=== PATIENT | male | born 1960 | race Caucasian/White ===

== ENCOUNTER 2017-11-27 07:48 | Day surgery (SDC) | payer OTHER, SELFPAY ==
[2017-11-27] MEDS: SODIUM CHLORIDE 0.9% 1,000 ML 84 ML IV (00:30)
[2017-11-27 08:04] VITALS: BP 165/76; PULSE 60; RESP 18; TEMP 36.2; O2SAT 98; BMI 25.9
[2017-11-27] MEDS: fentaNYL 250 MCG/5 ML INJ IV (09:08)
[2017-11-27] MEDS: MIDAZOLAM 5 MG/5 ML VIAL IV (09:08)
[2017-11-27 09:22] VITALS: BP 98/68; PULSE 59; RESP 15; TEMP 36.1; O2SAT 98
[2017-11-27 09:42] VITALS: BP 100/70; PULSE 68; RESP 15; TEMP 36.2; O2SAT 99
[2017-11-27 10:05] VITALS: BP 123/76; PULSE 62; RESP 20; TEMP 36.8; O2SAT 98
--- NOTE | 2017-11-27 13:00 | OP_ITS ---
DATE OF SERVICE: 11/27/2017 PREOP DIAGNOSIS: Screening colonoscopy. POSTOP DIAGNOSIS: Normal colon. No polyps. No tumors. No ulcerations. No diverticulosis. PROCEDURE: Total colonoscopy to the cecum. Numerous photographs were taken of the normal colon with its normal flexures. SURGEON: Marshall Moore MD DESCRIPTION OF PROCEDURE: The patient was given conscious sedation and properly identified during a surgical pause. A flexible fiberoptic colonoscope was inserted transanally to the cecum. There were no tumors. No polyps. No ulcerations. No signs of bleeding or sources or bleeding. No diverticulosis. The patient has a normal colon. The procedure was very well tolerated. I would recommend colonoscopy again in 10 years. RosalbaTerry peng - Shauna/sapna doc#: [id number]/job#: [id number] dd: 11/27/2017 09:43:00 dt: 11/27/2017 12:54:00 DICTATING MD/COPIES TO: Marshall Moore MD COPIES MNE: RODRIGUEZ
--- NOTE | 2017-11-27 15:15 | HP_ITS ---
DATE OF SERVICE: 11/27/2017 HISTORY OF PRESENT ILLNESS: The patient is in for a screening colonoscopy. He is totally asymptomatic. No melena. No hematochezia. No abdominal pain. He has had no previous colonoscopy. Negative family history for colon cancer. PAST MEDICAL HISTORY: Denies diabetes, heart disease, or hypertension. PAST SURGICAL HISTORY: He had a cervical diskectomy a couple of months ago with good results, anterior approach. No other previous surgery. ALLERGIES: HE HAS NO KNOWN DRUG ALLERGIES. MEDICATIONS: He takes no medications. REVIEW OF SYSTEMS: Negative for chest pain or unusual shortness of breath. GI: As per HPI. : Negative. NEUROLOGIC: Normal. PHYSICAL EXAMINATION VITAL SIGNS: Blood pressure 120/80, heart rate 80s. HEENT: Ears, nose, and throat normal. NECK: No adenopathy. LUNGS: Clear. HEART: Regular rhythm. No murmur. ABDOMEN: No organomegaly. No tenderness. RECTAL: Exam will be done at the time of the colonoscopy. DIAGNOSIS: Screening colonoscopy. David Terry - /kun/sapna doc#: [id number]/job#: [id number] dd: 11/27/2017 08:48:00 dt: 11/27/2017 12:58:00 DICTATING /COPIES TO: Marshall Moore MD COPIES MNE: RODRIGUEZ
== END 2017-11-27 10:10 | disposition home or self-care (01) ==
PROVIDERS: Family Provider Family Medicine; PCP Family Medicine; Visit Provider Surgery
PROC: 0DJD8ZZ Inspection of Lower Intestinal Tract, Via Natural or Artificial Opening Endoscopic (ICD-10-PCS; CPT 45378; principal; 2017-11-27 08:45)
DX: Z12.11 Encounter for screening for malignant neoplasm of colon (principal)
CPT/HCPCS: 45378; J2250; J3010

== ENCOUNTER 2018-03-23 06:49 | Day surgery (SDC) | payer OTHER, SELFPAY ==
[2018-02-05 07:56] VITALS: BMI 25.3
[2018-03-23] VITALS (8 sets, daily range): BP systolic 91–117; BP diastolic 54–82; PULSE 62–69; RESP 8–16; TEMP 36.1–36.2; O2SAT 95–100; BMI 23.0
--- NOTE | 2018-03-23 | PATH_ITS ---
[facility] Accession Number: [id number] . 01 Material submitted: . PART A: LEFT LATERAL HEMORRHOID PART B: RIGHT POSTERIOR HEMORRHOID . 01 Diagnosis: A. Left Lateral Hemorrohid, Hemorrhoidectomy: Benign hemorrhoid tissue. . B. Right Posterior Hemorrhoid, Hemorrhoidectomy: Benign hemorrhoid tissue. MRV/03/24/2018 . 01 Electronically signed: . Nate Giraldo MD, Pathologist NPI- [id number] . 01 Gross description: . Received two formalin-filled containers, both labeled with the patient's name: . A. In a container labeled left lateral hemorrhoid, the specimen consists of a banegas-johnson, very irregular-shaped, dome-shaped portion of tissue which measures 2.5 x 1.5 x 0.5 cm with a centrally located 2.0 cm in length projection. The specimen is inked blue. Two in store representative sections are submitted in cassette A. B. In a container labeled right posterior hemorrhoid, the specimen consists of a banegas-johnson, rough, dome-shaped portion of tissue which measures 2.2 x 1.5 x 0.6 cm. The specimen is inked blue. Two in store representative sections are submitted in cassette B. ([id number]) /FRR . 01 Microscopic: . A, B. Squamous mucosa with dilated veins and prominent congestion within the submucosa, negative for dysplasia or malignancy. . 01 Pathologist provided ICD-10: K64.9 . 01 CPT . 088076, 717706 Performed at: [address], [place], [place] [id number] MD Marvin Russo MD Phone: [phone]
[2018-03-23] MEDS: LACTATED RINGERS 1,000 ML 21 ML IV (07:14)
--- NOTE | 2018-03-23 07:14 | PM.HP.1 ---
History of Present Illness Date Patient Seen: 03/23/18 Time Patient Seen: 07:14 Chief complaint: 65313 HEMORRHOIDECTOMY Narrative: 57-year-old male who presented recently for evaluation of inflamed painful intermittently bleeding external hemorrhoids. He has completed colonoscopy earlier this year with no significant findings. However, his hemorrhoid disease continues to be bothersome and is interfering with his activities of daily living including work. He therefore presents for planned external hemorrhoidectomy. On further history today his symptoms and medical history of not changed since his initial evaluation on February 04, 2018. Denies any new abdominal pain, nausea, vomiting, melena, or blood clots per rectum. No change in bowel habits or pain with defecation other than that associated with the inflamed hemorrhoids. Patient History Medical History Inflamed external hemorrhoid (Acute) No significant past medical history (Acute) Surgical History History of anterior cruciate ligament surgery (Acute) History of cervical discectomy (Acute) History of colonoscopy (Acute) History of tonsillectomy (Acute) Family & Social History Social History: household members spouse Tobacco & Substance use: Smoking Status Never smoker alcohol intake never Meds Home Medications Medication Instructions Recorded Confirmed Type No Known Home Medications 11/27/17 03/23/18 History Allergies Allergy/AdvReac Type Severity Reaction Status Date / Time No Known Drug Allergies Allergy Verified 03/23/18 07:03 Review of Systems Review of Systems All systems reviewed & are unremarkable except as noted in HPI and below Exam Vital Signs (past 8 hours): - 03/23/18 07:08 Temperature 97.2 F L Pulse Rate 63 Respiratory Rate 15 Blood Pressure 108/79 Pulse Oximetry 98 Oxygen Delivery Method Room Air Narrative Exam Narrative: Well-nourished well-developed male in no acute distress. Alert oriented x3 Regular rate and rhythm No crackles or wheezes Abdomen soft, nondistended, nontender Extremities show no clubbing, cyanosis, or edema Rectal examination is deferred per patient preference since this was recently done and documented February 04, 2018. Objective Labs Labs: No new radiographic or laboratory studies for review Assessment & Plan Plan: Assessment/Plan Narrative: 57-year-old male with symptomatic external hemorrhoids and possible internal hemorrhoids as well. However, his external hemorrhoids are significantly inflamed and symptomatic. Plan to proceed to the operating room today for examination under anesthesia, anoscopy, and hemorrhoidectomy. Again the technical details were discussed. Patient has completed his bowel preparation yesterday as instructed. Risks, benefits, alternatives as well as anticipated healing times were reiterated. All questions were answered once again to his satisfaction, and he voiced understanding. Consent is placed on the chart. Otherwise his history and physical examination is documented on February 04, 2018 has not changed. We will proceed as planned today.
--- NOTE | 2018-03-23 07:17 | PM.PREOP ---
Pre-operative Note Interval Note Pre-op Check: Yes History & Physical Reviewed by Physician, Yes Exam Performed and Yes History & Physical exam performed today by Physician Changes: No H&P completed within 30 days and has changed as indicated here:: Patient seen and examined again today. History and physical examination documented today and placed on the chart. No changes since his initial history and physical examination documented February 04, 2018. Proceed with hemorrhoidectomy today as planned.
[2018-03-23] MEDS: CEFAZOLIN 2 GM/100 ML FROZ.PIGGY IV (07:59)
--- NOTE | 2018-03-23 08:16 | SUR.OPER ---
Prone on padded OR bed, head in foam head support, gel chest rolls, gel pad under knees, pillow under lower legs, toes free of pressure, arms secured on padded arm boards at <90 degrees abduction. Safety belt at chest. Tape over blanket over lower legs.
[2018-03-23] MEDS: LIDOCAINE 1% W/EPI INJ 20 ML INJ (08:23)
[2018-03-23] MEDS: DIBUCAINE 1% OINT 28 GM 1 APPLIC TOP (08:24)
--- NOTE | 2018-03-23 09:03 | PM.OP.1 ---
Operative Date/Time/Diagnoses Date of procedure: 03/23/18 Time of procedure: 09:05 Pre-op diagnosis: Symptomatic bleeding external and internal hemorrhoids Post-op diagnosis: same Procedure & Clinicians Procedure: 1. Examination under anesthesia 2. Anoscopy 3. External and internal hemorrhoidectomy of two cushions Same procedure as scheduled: Yes Indications: 57-year-old male who presented with symptomatic bleeding painful external hemorrhoids. He had failed medical management. Hemorrhoidectomy was recommended. Surgeon: Gabriel Comer Click Yes if Unassisted: Yes Anesthesia Type: General Operative Notes Findings: 1. Enlarged inflamed pedunculated left lateral external hemorrhoid in conjunction with grade 2 internal hemorrhoid 2. Enlarged inflamed right posterior external hemorrhoid in conjunction with grade 2 internal hemorrhoid 3. Normal distal rectal mucosa and anal canal otherwise 4. No evidence of fissures or fistula Closure Type: primary Specimen(s): other (1. Left lateral hemorrhoid 2. Right posterior hemorrhoid) Implants & Drains: None Estimated Blood Loss (mL): 10 Blood products transfused: none Procedure in detail: After obtaining informed consent the patient was brought to the operating room and left supine on the gurney. After satisfactory induction of anesthesia he was placed in prone mar-knife position. All pressure points were padded appropriately. SCOAP time out was performed per standard protocol. Buttocks were taped apart and the anal region was prepped and draped in usual sterile fashion. Digital rectal examination as well as anoscopy using the Piña bivalve anoscope was performed. Findings are as above. Attention was turned to the left lateral hemorrhoid cushion which was secured with an Allis clamp. A single 2 0 chromic suture was placed at the base of the vascular pedicle of the internal hemorrhoid cushion and left in place. Area was infiltrated with 1% lidocaine with 1 100,000 epinephrine. A v-shaped incision was created with 15 scalpel blade along the anoderm. Metzenbaum scissors was used to meticulously dissect along the submucosal plane and excised the external and internal hemorrhoid cushion as a single unit. Great care was taken avoid injury to the underlying sphincter muscles. Specimen was sent for permanent section. Mucosal defect was then secured with running interlocking 2 0 chromic suture that had been previously placed in the anal canal. Small gap was left at the skin for drainage. Hemostasis was verified. In a similar fashion the right posterior hemorrhoid cushion including the external and internal hemorrhoid were removed. Hemostasis was again achieved. Anal canal was irrigated and noted to be hemostatic after observation. Gel-Foam packing with copious amounts of dibucaine ointment was inserted into the anorectal canal for hemostasis and comfort. Sterile dressing was applied and secured with mesh undergarment. Patient was returned to supine position on the gurney. Anesthesia was reversed and he was extubated in the operating room. He was taken recovery in stable condition. Complications: none Condition: stable Disposition: PACU Plan for aftercare: 1. Discharged home 2. Follow up in surgery Clinic in 2 weeks
--- NOTE | 2018-03-23 09:07 | SUR.PHASEI ---
arrived with oral airway and needing chin lift, airway now out and pt following commands.
--- NOTE | 2018-03-23 09:22 | SUR.PHASEI ---
pt now awake, eating applesauce, denies pain.
[2018-03-23] MEDS: OXYCODONE IR 5 MG TABLET PO (09:26)
--- NOTE | 2018-03-23 09:42 | SUR.PHASEI ---
pt medicated with oxycontin for minimal pain, transferred to opd stable
== END 2018-03-23 09:55 | disposition home or self-care (01) ==
PROVIDERS: Family Provider Family Medicine; PCP Family Medicine; Visit Provider Surgery
PROC: (CPT 46260; principal; 2018-03-23 07:45)
DX: K64.1 Second degree hemorrhoids (principal); K64.4 Residual hemorrhoidal skin tags
CPT/HCPCS: 46260; J0330; J0690; J1100; J2250; J2405; J2704; J3010

== ENCOUNTER → 2018-08-19 15:52 | Outpatient (CLI) | payer OTHER, SELFPAY ==
--- NOTE | 2018-08-19 15:55 | DI.RAD.S_ITS ---
PROCEDURE: XR KNEE LT 3V INDICATIONS: BILATERAL KNEE PAIN TECHNIQUE: 3 views of the knee were acquired. COMPARISON: None. FINDINGS: Bones: No fractures or dislocations. No suspicious bony lesions. Prior ACL repair, Soft tissues: No joint effusion. No suspicious soft tissue calcifications. IMPRESSION: Prior left sided ACL repair in addition to right sided ACL repair. The upper screw located laterally oriented transversely tears farther separate from the lateral cortex than is generally seen. Orthopedic surgical review may be warranted to determine whether this represents an expected appearance. Dictated by: Phil Rodriguez M.D. on 08/19/2018 at 17:44 Approved by: Phil Rodriguez M.D. on 08/19/2018 at 17:45
--- NOTE | 2018-08-19 15:55 | DI.RAD.S_ITS ---
PROCEDURE: XR KNEE RT 3V INDICATIONS: BILATERAL KNEE PAIN TECHNIQUE: 3 views of the knee were acquired. COMPARISON: None. FINDINGS: Bones: No fractures or dislocations. No suspicious bony lesions. Soft tissues: No joint effusion. No suspicious soft tissue calcifications. IMPRESSION: Postoperative changes of ACL reconstruction, no acute disease. Dictated by: Phil Rodriguez M.D. on 08/19/2018 at 17:43 Approved by: Phil Rodriguez M.D. on 08/19/2018 at 17:44
== END ==
PROVIDERS: Family Provider Family Medicine; PCP Family Medicine; Visit Provider Family Medicine
DX: M25.561 Pain in right knee (principal); M25.562 Pain in left knee
CPT/HCPCS: 73562

== ENCOUNTER → 2020-05-31 11:58 | Outpatient (CLI) | payer SELFPAY ==
--- NOTE | 2020-05-31 | DI.RAD.S_ITS ---
PROCEDURE: XR SHOULDER RT MIN 2V INDICATIONS: RIGHT SHOULDER PAIN TECHNIQUE: 3 views of the shoulder were acquired. COMPARISON: None. FINDINGS: Bones: No fractures or dislocations. No suspicious bony lesions. Visualized ribs appear intact. Mild joint narrowing with periarticular osteophyte formation. Soft tissues: No suspicious soft tissue calcifications. IMPRESSION: Mild acromioclavicular joint degeneration. Dictated by: Elkin Theodore [facility] Interpreted: dEwardo Gold MD on 05/31/2020 at 14:57 Approved by: Edwardo Gold M.D. on 05/31/2020 at 15:04
== END ==
PROVIDERS: PCP Student in an Organized Health Care Education/Training Program; Referring Provider Student in an Organized Health Care Education/Training Program; Visit Provider Student in an Organized Health Care Education/Training Program
DX: M25.511 Pain in right shoulder (principal); M19.011 Primary osteoarthritis, right shoulder
CPT/HCPCS: 73030

== ENCOUNTER → 2021-09-20 11:28 | Outpatient (CLI) | payer OTHER, SELFPAY ==
--- NOTE | 2021-09-20 | DI.RAD.S_ITS ---
PROCEDURE: XR KNEE RT 3V INDICATIONS: Pain in unspecified knee TECHNIQUE: 3 views of the knee were acquired. COMPARISON: [facility], CR, XR KNEE LT 3V, 08/19/2018, 15:59. FINDINGS: Bones: There is prior right ACL reconstruction with postsurgical changes seen in distal femur and proximal tibia. Right knee alignment is anatomic. No fractures or dislocations. No gross hardware loosening or failure. No suspicious bony lesions. Soft tissues: No joint effusion. Chondrocalcinosis in medial femoral tibial compartment is seen. IMPRESSION: Prior right ACL reconstruction with postsurgical changes. No fracture or dislocation. No evidence of hardware complication. No significant joint effusion. Chondrocalcinosis as above. Dictated by: Edwardo Gold M.D. on 09/20/2021 at 12:11 Approved by: Edwardo Gold M.D. on 09/20/2021 at 12:13
--- NOTE | 2021-09-20 | DI.RAD.S_ITS ---
PROCEDURE: XR KNEE LT 3V INDICATIONS: Pain in unspecified knee TECHNIQUE: 3 views of the knee were acquired. COMPARISON: [facility], CR, XR KNEE LT 3V, 08/19/2018, 15:59. FINDINGS: Bones: There is prior ACL reconstruction surgery with postsurgical changes. No gross hardware loosening or failure. Left knee alignment is anatomic. No fractures or dislocations. No suspicious bony lesions. Soft tissues: No joint effusion. Chondrocalcinosis in medial and lateral femoral tibial compartments are seen. IMPRESSION: Stable postsurgical changes in left knee with anatomic alignment. No fracture or dislocation. No evidence of hardware complication. Chondrocalcinosis as above. No significant joint effusion. Dictated by: Edwardo Gold M.D. on 09/20/2021 at 12:10 Approved by: Edwardo Gold M.D. on 09/20/2021 at 12:11
== END ==
PROVIDERS: PCP Student in an Organized Health Care Education/Training Program; Referring Provider Family Medicine; Visit Provider Family Medicine
DX: M11.262 Other chondrocalcinosis, left knee (principal); M11.261 Other chondrocalcinosis, right knee; M25.561 Pain in right knee; M25.562 Pain in left knee
CPT/HCPCS: 73562

== ENCOUNTER → 2023-06-06 10:13 | Outpatient (CLI) | payer OTHER, SELFPAY ==
[2023-06-06 11:14] LABS: Add Manual Diff / Slide Review NO; Basophils Absolute Auto 0 /uL (0-100); Basophils Percent Auto 0.8 % (0-2); Eosinophils Absolute Auto 100 /uL (0-450); Eosinophils Percent Auto 1.2 % (2-4); Hematocrit 46.7 % (41-53); Hemoglobin 15.9 g/dL (13.5-17.5); Lymphocytes Absolute Auto 1200 /uL (1100-4500); Mean Corpuscular HGB Conc 34.1 % (30-36); Mean Corpuscular Hemoglobin 29.5 PG (26-34); Mean Corpuscular Volume 86.4 fL (80-100); Monocytes Absolute Auto 700 /uL (0-900); Monocytes Percent Auto 12.5 % (3-14); Neutrophils Absolute Auto 3800 /uL (1500-7000); Neutrophils Percent Auto 64.5 % (50-75); Platelet Count 231 X10^3/uL (150-400); Red Blood Cell Count 5.41 X10^6/uL (4.5-5.9); Red Cell Distribution Width 13.2 % (11.6-14.8); White Blood Cell Count 5.8 X10^3/uL (4.5-11.0)
[2023-06-06 11:30] LABS: Alanine Aminotransferase 26 IU/L (<50); Albumin 4.5 g/dL (3.5-5.0); Albumin Globulin Ratio 1.5 (1.0-2.8); Alkaline Phosphatase 49 U/L (38-126); Aspartate Aminotransferase 30 IU/L (17-59); BUN Creatinine Ratio 17.1 (6-22); Bilirubin Total 0.9 mg/dL (0.2-1.3); Blood Urea Nitrogen 19 mg/dL (9-20); Calcium 9.3 mg/dL (8.4-10.2); Carbon Dioxide 27 mmol/L (22-32); Chloride 105 mmol/L (98-107); Cholesterol 234 mg/dL (140-199); Estimated Glomerular Filt Rate > 60 mL/min (>60); Glucose 107 mg/dL (80-110); HDL Cholesterol 50 mg/dL (40-60); HEMOLYSIS < 15 (0-50); LDL Cholesterol Calculated 145 mg/dL (<100); Potassium 4.4 mmol/L (3.4-5.1); Sodium 137 mmol/L (137-145); Total Protein 7.5 g/dL (6.3-8.2); Triglycerides 196 mg/dL (35-150)
[2023-06-06 11:49] LABS: Free T4, Direct Thyroxine 0.79 ng/dL (0.78-2.19)
[2023-06-06 11:57] LABS: Prostate Specific Antigen 1.93 ng/mL (0.10-4.00)
[2023-06-06 12:03] LABS: Thyroid Stimulating Hormone 1.49 uIU/mL (0.47-4.68)
== END ==
PROVIDERS: PCP Family Medicine; Referring Provider Family Medicine; Visit Provider Family Medicine
DX: Z00.00 Encounter for general adult medical examination without abnormal findings (principal)
CPT/HCPCS: 36415; 80053; 80061; 84153; 84439; 84443; 85025

== ENCOUNTER → 2024-03-21 13:40 | Outpatient (CLI) | payer OTHER, SELFPAY ==
--- NOTE | 2024-03-21 13:43 | DI.RAD.S_ITS ---
PROCEDURE: XR FOOT LT 2V INDICATIONS: HEEL PAIN TECHNIQUE: 3 views of the foot were acquired. COMPARISON: None. FINDINGS: Bones: No fractures or dislocations. No suspicious bony lesions. Soft tissues: No tibiotalar joint effusion. Achilles tendon appears normal. IMPRESSION: No acute bony abnormality. Approved by: Fady Elizondo M.D. on 03/21/2024 at 19:03
== END ==
PROVIDERS: PCP Family Medicine; Referring Provider Family Medicine; Visit Provider Family Medicine
DX: M79.672 Pain in left foot (principal)
CPT/HCPCS: 73620

== ENCOUNTER → 2024-04-07 07:09 | Outpatient (CLI) | payer OTHER, SELFPAY ==
--- NOTE | 2024-04-07 07:10 | DI.MRI.S_ITS ---
PROCEDURE: MR ANKLE LT WO CON INDICATIONS: CHRONIC HEEL PAIN, LEFT TECHNIQUE: Noncontrast sagittal T1 spin echo and T2 fast spin echo with fat saturation, axial proton density fast spin echo and T2 fast spin echo with fat saturation, coronal T1 spin echo and T2 fast spin echo with fat saturation through the ankle/hindfoot. COMPARISON: None. FINDINGS: Image quality: Excellent Tendons: Mild tenosynovitis of the posterior tibialis, and the flexor digitorum longus. Mild tenosynovitis of the flexor hallucis longus at the master knot Chris. Mild tenosynovitis of the anterior tibialis, at the level of the tibial plafond and. The extensor hallucis longus and the extensor digitorum longus are unremarkable. Mild tenosynovitis of the peroneal longus at the level of the anterior calcaneus. No tear of the peroneal tendon. The distal Achilles tendon is unremarkable. Ligaments: The anterior and the posterior tibiofibular ligament are intact. The anterior talofibular ligament is not well visualized, likely fully torn. The posterior talofibular ligament is intact. The calcaneofibular ligament is intact. The deep portion of the deltoid ligament is intact. Sinus tarsi: No fibrosis Plantar fascia: Unremarkable Muscles: Normal in signal Bones: Mild subchondral cystic changes at the medial aspect of the talus, about the insertion of the deep portion deltoid ligament, reactive. No acute fracture. No marrow contusion. Moderate posterior subtalar effusion. IMPRESSION: 1. Mild tenosynovitis of the flexor, extensor, and peroneal tendons. 2. Full-thickness tear of the anterior talofibular ligament. 3. Moderate posterior subtalar effusion. Dictated by: Diana Meraz M.D. on 04/07/2024 at 10:36 Approved by: Diana Meraz M.D. on 04/07/2024 at 10:45
== END ==
PROVIDERS: PCP Family Medicine; Referring Provider Family Medicine; Visit Provider Family Medicine
DX: M65.972 Unspecified synovitis and tenosynovitis, left ankle and foot (principal); S93.492A Sprain of other ligament of left ankle, initial encounter; M79.672 Pain in left foot; G89.29 Other chronic pain; M25.462 Effusion, left knee
CPT/HCPCS: 73721